=== PATIENT | male | born 1960 | race Caucasian/White ===

== ENCOUNTER 2016-10-07 22:27 | Emergency (ER) | payer OTHER ==
[2016-10-07 22:40] VITALS: BP 127/76; PULSE 60; RESP 16; TEMP 97.5; O2SAT 96
--- NOTE | 2016-10-07 22:44 | EDPHY ---
H & P Time Seen by Provider: 10/07/16 22:35 HPI/ROS: 56-year-old male presents complaining of right small toe pain and swelling, he states he clipped often ingrown toenail approximately a week ago and then he also bumped his toe while camping this weekend. He is adamant that there is no possibility of a fracture to this toe. He is concerned with the swelling and redness at the border of the nail bed. Review of systems As per HPI General no fever no chills no weakness HEENT no eye pain no eye discharge. No eye redness, no sore throat Respiratory no cough, no shortness of breath Cardiac no chest pain, no peripheral edema GI no abdominal pain, no diarrhea, no constipation, no nausea, no vomiting no flank pain, no hematuria, no dysuria Musculoskeletal no myalgias, no joint pain Heme no easy bruising, no easy bleeding Endo no polyuria, no polydipsia Skin positive rashes, no pruritus Neuro no syncope, no dizziness, no headaches Psych is no suicidal ideation, no homicidal ideation Past Medical/Surgical History: Noncontributory Social History: Alcohol socially, denies drug use Smoking Status: Never smoked Physical Exam: 56-year-old male alert and oriented Alert and oriented in no acute distress nontoxic appearance, afebrile Atraumatic normocephalic Neck no JVD Lungs clear to auscultation, no respiratory distress Heart regular rate and rhythm Extremities no cyanosis clubbing edema Right little toe-good capillary refill, erythema and swelling at nail border No ecchymosis, right lateral edge with this small amount of crusting consistent with prior drainage Constitutional: Initial Vital Signs Temperature (C) 36.4 C 10/07/16 22:37 Heart Rate 60 10/07/16 22:37 Respiratory Rate 16 10/07/16 22:37 Blood Pressure 127/76 H 10/07/16 22:37 O2 Sat (%) 96 10/07/16 22:37 O2 Delivery Mode Room Air Allergies/Adverse Reactions: No Known Allergies Allergy (Verified 10/07/16 22:36) Home Medications: Medication Instructions Recorded Clindamycin HCl [Clindamycin] 300 mg PO TID 7 Days 10/07/16 Medical Decision Making Procedures: Incision and drainage Skin prepped with alcohol, digital block with 2% xylocaine combined with 0.25% bupivacaine without epinephrine Incision with #11 blade scalpel lifting eponychium Small amount of bloody drainage. Dressed Patient tolerated procedure well. ED Course/Re-evaluation: Patient seen and evaluated for right little toe swelling and pain Differential diagnosis Ingrown nail, paronychia Impression Paronychia Plan Incision and drainage Clindamycin Warm compresses Follow-up PCP Return if worsening - Data Points Medications Given: Discontinued Medications Clindamycin (Cleocin 150 Mg Prepack#6) 1 btl TAKEHOME EDNOW ONE PRN Reason: Protocol Stop: 10/07/16 23:04 Last Admin: 10/07/16 23:08 Dose: 1 btl Departure - Departure Disposition: Home, Routine, Self-Care Clinical Impression: Paronychia of fifth toe of right foot Condition: Good Instructions: Clindamycin (By mouth), Paronychia (ED) Referrals: NONE *PRIMARY CARE P,. [Primary Care Provider] - As per Instructions Prescriptions: Clindamycin HCl [Clindamycin] 300 mg PO TID 7 Days
[2016-10-07] MEDS ORDERED: CLINDAMYCIN 150MG PREPACK#6 BTL TAKEHOME ONE (23:03)
== END 2016-10-07 23:37 | disposition home or self-care (01) ==
LOC: CED 22:27
PROC: 0J9Q0ZZ Drainage of Right Foot Subcutaneous Tissue and Fascia, Open Approach (ICD-10-PCS; principal; 2016-10-07)
DX: L03.031 Cellulitis of right toe (principal)